=== PATIENT | male | born 1995 | race Caucasian/White ===

== ENCOUNTER 2017-01-17 17:44 | Emergency (ER) | payer MEDICARE | END 2017-01-17 19:41 | disposition home or self-care (01) | LOC: D.ER 17:44 | DX: M25.561 Pain in right knee (principal); V43.52XA Car driver injured in collision with other type car in traffic accident, initial encounter; Y93.89 Activity, other specified; Y92.410 Unspecified street and highway as the place of occurrence of the external cause ==

== ENCOUNTER 2017-01-21 15:33 | Emergency (ER) | payer MEDICARE | END 2017-01-21 16:08 | disposition home or self-care (01) | LOC: D.ER 15:33 | DX: Z04.1 Encounter for examination and observation following transport accident (principal) ==